=== PATIENT | female | born 1955 | race Two or more races ===

== ENCOUNTER 2018-03-29 01:25 | Inpatient (IN) | payer OTHER ==
[~2018-03-29] VITALS: Ht 157.5 cm; Wt 51.3 kg
--- NOTE | 2018-03-29 01:25 | NUR ---
FOUND WANDERING ON [address], CONFUSED, A/OX1 BUT PLEASANT. VSS NO ACUTE DISTRESS AT THIS TIME. SKIN WARM AND INTACT BUT PATIENT IS UNKEPT. [place] SPEAKING ONLY. WILL CONTINUE TO MONITOR FOR ANY CHNAGES DURING THE SHIFT.
--- NOTE | 2018-03-29 01:49 | NUR ---
EKG AT BEDSIDE
[2018-03-29 02:22] LABS: BASOPHILS % (AUTO) 0.5 % (0.0-2.0); EOSINOPHILS % (AUTO) 0.2 % (0.0-6.0); HEMATOCRIT 47 % (33-45); HEMOGLOBIN 14.8 g/dL (11.5-14.8); LYMPHOCYTES # (AUTO) 1.8 /CMM (0.8-4.8); MEAN CORPUSCULAR HEMOGLOBIN 30 PG (26.0-33.0); MEAN CORPUSCULAR HGB CONC 32 g/dl (31.0-36.0); MEAN CORPUSCULAR VOLUME 93 fL (82-100); MONOCYTES # (AUTO) 0.4 /CMM (0.1-1.30); MONOCYTES % (AUTO) 5.9 % (2.0-12.0); NEUTROPHILS # (AUTO) 4.8 /CMM (1.8-8.9); NEUTROPHILS % (AUTO) 67.4 % (43.0-81.0); PLATELET COUNT (AUTO) 322 /CMM (150-450); RDW COEFFICIENT OF VARIATION 13.5 (11.5-15.0); RED BLOOD CELL COUNT(AUTO) 4.98 MIL/uL (4.0-5.2); WHITE BLOOD COUNT (AUTO) 7.1 K/uL (4.3-11.0)
--- NOTE | 2018-03-29 02:22 | NUR ---
BLOOD/URINE SENT TO LAB WITH LASER BEAM TRIM OPERATOR
[2018-03-29 02:26] LABS: APPEARANCE,URINE SL CLOUDY (CLEAR); BILIRUBIN,URINE NEGATIVE (NEGATIVE); BLOOD, URINE NEGATIVE Ery/uL (NEGATIVE); COLOR,URINE YELLOW (YELLOW); KETONES,URINE TRACE (NEGATIVE); LEUKOCYTE ESTERASE ,URINE NEGATIVE (NEGATIVE); NITRITE, URINE NEGATIVE (NEGATIVE); PROTEIN,URINE TRACE mg/dl (NEGATIVE); UGLUCOSE NEGATIVE (NEGATIVE); UROBILINOGEN,URINE 0.2 EU/dL (0.2)
[2018-03-29 02:36] LABS: BACTERIA,URINE Many /HPF (None Seen); RBC,URINE 0-2 /HPF (0-2)
[2018-03-29 02:36] LABS: CALCIUM, SERUM 9.5 mg/dL (8.5-10.1); CARBON DIOXIDE 28 mmol/L (21-32); CHLORIDE 109 mmol/L (98-107); CREATININE 0.7 mg/dL (0.6-1.3); GLUCOSE 157 mg/dL (74-106); INR 0.96 (0.87-1.13); POTASSIUM 4.3 mmol/L (3.5-5.1); SERUM AMMONIA 3 umol/L (11-32); SODIUM SERUM 146 mmol/L (136-145); UREA NITROGEN, BLOOD 17 mg/dL (7-18)
[2018-03-29 02:37] LABS: SQUAMOUS EPITHELIAL CELL,UR Few /HPF (None Seen)
--- NOTE | 2018-03-29 02:40 | NUR ---
PT OFF TO CT
[2018-03-29 02:42] LABS: ALANINE AMINOTRANSFERASE 19 U/L (12-78); ALBUMIN 4.3 g/dL (3.4-5.0); ALCOHOL, BLOOD < 3 mg/dL (0-0); ALKALINE PHOSPHATASE 81 U/L (46-116); ASPARTATE AMINOTRANSFERASE 15 U/L (15-37); BILIRUBIN,DIRECT 0.2 mg/dL (0.0-0.2); BILIRUBIN,TOTAL 0.9 mg/dL (0.2-1.0); TROPONIN I < 0.017 ng/mL (0.00-0.056)
[2018-03-29 02:43] LABS: ACETAMINOPHEN < 0 ug/ml (10-30); SALICYLATE < 0.2 mg/dL (2.8-20.0)
--- NOTE | 2018-03-29 02:50 | NUR ---
PT BACK FROM CT
--- NOTE | 2018-03-29 04:47 | NUR ---
REPORT GIVEN TO SILVANA PATEL FOR ADMISSION, FOR PRIMARY RN SHARA
[2018-03-29 05:00] VITALS: BP 151/73
[2018-03-29] MEDS ORDERED: Potassium Chloride 20 MEQ in IV D5/ 0.9% NACL 1,000 ML IV PRN (05:30)
[2018-03-29] MEDS ORDERED: ACETAMINOPHEN 325 MG TABLET PO PRN (05:30)
[2018-03-29 06:57] LABS: BASOPHILS % (AUTO) 0.4 % (0.0-2.0); EOSINOPHILS % (AUTO) 0.3 % (0.0-6.0); HEMATOCRIT 41 % (33-45); HEMOGLOBIN 13.6 g/dL (11.5-14.8); LYMPHOCYTES # (AUTO) 1.6 /CMM (0.8-4.8); LYMPHOCYTES % (AUTO) 29.2 % (20.0-44.0); MEAN CORPUSCULAR HEMOGLOBIN 31 PG (26.0-33.0); MEAN CORPUSCULAR HGB CONC 33 g/dl (31.0-36.0); MEAN CORPUSCULAR VOLUME 93 fL (82-100); MONOCYTES # (AUTO) 0.4 /CMM (0.1-1.30); MONOCYTES % (AUTO) 7.4 % (2.0-12.0); NEUTROPHILS # (AUTO) 3.4 /CMM (1.8-8.9); NEUTROPHILS % (AUTO) 62.7 % (43.0-81.0); PLATELET COUNT (AUTO) 261 /CMM (150-450); RDW COEFFICIENT OF VARIATION 13.3 (11.5-15.0); RED BLOOD CELL COUNT(AUTO) 4.36 MIL/uL (4.0-5.2); WHITE BLOOD COUNT (AUTO) 5.5 K/uL (4.3-11.0)
[2018-03-29 07:17] LABS: THYROID STIMULATING HORMONE 0.955 uIU/mL (0.358-3.74)
[2018-03-29 07:23] LABS: CALCIUM, SERUM 8.8 mg/dL (8.5-10.1); CREATININE 0.6 mg/dL (0.6-1.3); POTASSIUM 3.5 mmol/L (3.5-5.1)
[2018-03-29 08:00] VITALS: BP_SYST 152; BP_SYST 157; BP_DIAS 68; BP_DIAS 88
--- NOTE | 2018-03-29 08:00 | NUR ---
MED/ SURG NURSE NOTES RECEIVED PATIENT SITTING IN BED SIDE CHAIR. NO INDICATION OF SHORTNESS OF BREATH NOTED, NO INDICATION OF PAIN. BREATHING EVEN AND UNLABORED.PATIENT ABLE TO MAKE NEEDS KNOWN BUT SPEAKS [facility] ONLY. SKIN IS WARM. IV LINE ON THE L WRIST INTACT AND PATENT ON FLUSHING. NO IV FLUID RUNNING AT THIS TIME DUE TO ELECTROLYTES ON NORMAL LIMITS. ENDORSED TO BE FOLLOWED UP WITH PHARMACIST ONCE LAB RESULT AVAILABLE. REITERATE PATIENT TO CALL FOR ASSISTANCE. CALL LIGHT WITHIN REACH, BED LOW AND LOCKED. WILL CLOSELY MONITOR PATIENT.
--- NOTE | 2018-03-29 08:51 | NUR ---
MED SURG NURSE NOTES SEEN AND EXAMINED BY DR. DEJESUS. PER MD PATIENT IS SEVERELY DEMENTED. OK FOR DISCHARGE ONCE IDENTITY AND LIVING ARRANGEMENT IS OBTAINED.
--- NOTE | 2018-03-29 09:45 | NUR ---
MED/SURG NURSE NOTE PATIENT DISCHARGE ACCOMPANIED BY RADHA FROM [facility]. EXIT CARE DONE. ALL QUESTIONS ADDRESSED APPROPRIATELY, DISCHARGED INSTRUCTIONS GIVEN TO RADHA THE SOFTWARE DEVELOPER MID LEVEL. PHOTOS TAKEN. PATIENT ASSISTED BY ASHVIN QUEVEDO PATIENT EXITS THE BUILDING.
== END 2018-03-29 10:00 | disposition home or self-care (01) | DRG 757 ==
LOC: ER 01:27 → TELE1 04:33 → MEDSG1 05:19
PROVIDERS: ADMIT Internal Medicine; ATTEND Internal Medicine
DX: F03.90 Unspecified dementia, unspecified severity, without behavioral disturbance, psychotic disturbance, mood disturbance, and anxiety (principal); E11.9 Type 2 diabetes mellitus without complications; I10 Essential (primary) hypertension
CPT/HCPCS: 36415; 70450-TC; 71045-TC; 80048-TC; 80076-TC; 80305; 81000-TC; 82140-TC; 82962-TC; 83605-TC; 84443-TC; 84484-TC; 85025-TC; 85730-TC; 87040-TC; 87086-TC; 87186-TC; A4606; G0480; J3480; J7042; Z7610

== ENCOUNTER 2019-02-16 15:07 | Emergency (ER) | payer OTHER ==
[~2019-02-16] VITALS: Ht 157.5 cm; Wt 61.2 kg
--- NOTE | 2019-02-16 15:15 | NUR ---
PT BIB [facility] C/O HIGH BLOOD SUGAR 230MG/DL, PT IS AAOX1, NOT IN RESPIRATORY DISTRESS, V/S STABLE, KEPT RESTED AND COMFORTABLE, WILL CONTINUE TO MONITOR.
--- NOTE | 2019-02-16 15:27 | NUR ---
SEEN AND EXAMINED BY DR. ANDERSON.
--- NOTE | 2019-02-16 15:40 | NUR ---
BLOOD DRAWNED AND SENT TO LAB.
[2019-02-16 15:43] LABS: BASOPHILS % (AUTO) 0.6 % (0.0-2.0); EOSINOPHILS % (AUTO) 0.5 % (0.0-6.0); HEMATOCRIT 38 % (33-45); HEMOGLOBIN 12.8 g/dL (11.5-14.8); LYMPHOCYTES # (AUTO) 1.3 /CMM (0.8-4.8); LYMPHOCYTES % (AUTO) 17.8 % (20.0-44.0); MEAN CORPUSCULAR HGB CONC 34 g/dl (31.0-36.0); MEAN CORPUSCULAR VOLUME 91 fL (82-100); MONOCYTES # (AUTO) 0.6 /CMM (0.1-1.30); MONOCYTES % (AUTO) 8.5 % (2.0-12.0); NEUTROPHILS # (AUTO) 5.5 /CMM (1.8-8.9); NEUTROPHILS % (AUTO) 72.6 % (43.0-81.0); PLATELET COUNT (AUTO) 242 /CMM (150-450); RED BLOOD CELL COUNT(AUTO) 4.12 MIL/uL (4.0-5.2); WHITE BLOOD COUNT (AUTO) 7.6 K/uL (4.3-11.0)
--- NOTE | 2019-02-16 15:48 | NUR ---
MARKETING ACCOUNT EXECUTIVE AT BEDSIDE FOR XRAY.
--- NOTE | 2019-02-16 15:48 | NUR ---
URINE SPECIMEN COLLECTED AND SENT TO LAB.
[2019-02-16 15:50] LABS: CALCIUM, SERUM 9.1 mg/dL (8.5-10.1); CARBON DIOXIDE 29 mmol/L (21-32); CHLORIDE 102 mmol/L (98-107); CREATININE 0.8 mg/dL (0.6-1.3); GLUCOSE 213 mg/dL (74-106); POTASSIUM 3.7 mmol/L (3.5-5.1); SODIUM SERUM 139 mmol/L (136-145); UREA NITROGEN, BLOOD 13 mg/dL (7-18)
[2019-02-16 15:52] LABS: APPEARANCE,URINE Cloudy (CLEAR); BILIRUBIN,URINE Negative (NEGATIVE); BLOOD, URINE Trace-lysed Ery/uL (NEGATIVE); COLOR,URINE Yellow (YELLOW); KETONES,URINE Negative (NEGATIVE); LEUKOCYTE ESTERASE ,URINE Large (NEGATIVE); NITRITE, URINE Positive (NEGATIVE); PROTEIN,URINE Negative (NEGATIVE); UGLUCOSE Negative (NEGATIVE); UROBILINOGEN,URINE 0.2 EU/dL (0.2)
[2019-02-16 16:08] LABS: BACTERIA,URINE Few /HPF (None Seen); SQUAMOUS EPITHELIAL CELL,UR Few /HPF (None Seen); WBC,URINE 21-50 /HPF (0-3)
[2019-02-16] MEDS ORDERED: IV NS 0.9% 500 ML BAG IV ONE (16:30)
[2019-02-16] MEDS ORDERED: CEFTRIAXONE 1 G in IV D5W 50 ML IV ONE (16:30)
[2019-02-16] MEDS ORDERED: CEFTRIAXONE 1GM BAG (ER ONLY) 50 ML IV ONE (16:32)
--- NOTE | 2019-02-16 18:59 | NUR ---
CALLED [facility] FOR [facility], ETA [phone].
--- NOTE | 2019-02-16 20:25 | NUR ---
IV removed. Catheter intact and site benign. Pressure and 4x4 applied to site. No bleeding noted. transport at [facility] report given to emt.
[2019-02-16 20:27] VITALS: BP 132/69
== END 2019-02-16 20:28 | disposition home or self-care (01) ==
LOC: ER 15:07
DX: E11.65 Type 2 diabetes mellitus with hyperglycemia (principal); N30.00 Acute cystitis without hematuria; I10 Essential (primary) hypertension; F03.90 Unspecified dementia, unspecified severity, without behavioral disturbance, psychotic disturbance, mood disturbance, and anxiety; Z86.73 Personal history of transient ischemic attack (TIA), and cerebral infarction without residual deficits
CPT/HCPCS: 36415; 71045; 80048; 81001; 84484; 85025; 87077; 87086; 87186; 93005 ×2; 96365; 99284; J0696 ×2; J7040; J7060; 81000-TC

== ENCOUNTER 2019-08-04 14:36 | Emergency (ER) | payer OTHER ==
[~2019-08-04] VITALS: Ht 167.6 cm; Wt 49.9 kg
[2019-08-04] MEDS ORDERED: METF-442 PO (15:50)
[2019-08-04] MEDS ORDERED: DONE10TA44 PO (15:50)
[2019-08-04] MEDS ORDERED: LITH300T3 PO (15:50)
[2019-08-04] MEDS ORDERED: CHOL3000 PO (15:50)
[2019-08-04] MEDS ORDERED: BENZ1TAB7 PO (15:50)
[2019-08-04] MEDS ORDERED: OLAN5TAB3 PO (15:50)
[2019-08-04] MEDS ORDERED: VALP250S3 PO (15:50)
[2019-08-04 16:01] LABS: BASOPHILS # (AUTO) 0.1 /CMM (0.0-0.2); BASOPHILS % (AUTO) 0.5 % (0.0-2.0); EOSINOPHILS % (AUTO) 0.4 % (0.0-6.0); HEMATOCRIT 40 % (33-45); HEMOGLOBIN 13.5 g/dL (11.5-14.8); LYMPHOCYTES # (AUTO) 1.7 /CMM (0.8-4.8); LYMPHOCYTES % (AUTO) 17.1 % (20.0-44.0); MEAN CORPUSCULAR HGB CONC 34 g/dl (31.0-36.0); MEAN CORPUSCULAR VOLUME 94 fL (82-100); MONOCYTES # (AUTO) 0.5 /CMM (0.1-1.30); MONOCYTES % (AUTO) 4.6 % (2.0-12.0); NEUTROPHILS # (AUTO) 7.9 /CMM (1.8-8.9); NEUTROPHILS % (AUTO) 77.4 % (43.0-81.0); PLATELET COUNT (AUTO) 323 /CMM (150-450); RED BLOOD CELL COUNT(AUTO) 4.27 MIL/uL (4.0-5.2); WHITE BLOOD COUNT (AUTO) 10.2 K/uL (4.3-11.0)
[2019-08-04 16:11] LABS: CALCIUM, SERUM 10.3 mg/dL (8.5-10.1); CARBON DIOXIDE 31 mmol/L (21-32); CHLORIDE 105 mmol/L (98-107); CREATININE 0.6 mg/dL (0.6-1.3); GLUCOSE 112 mg/dL (74-106); POTASSIUM 3.8 mmol/L (3.5-5.1); SODIUM SERUM 143 mmol/L (136-145); UREA NITROGEN, BLOOD 9 mg/dL (7-18)
[2019-08-04 16:16] LABS: ALANINE AMINOTRANSFERASE 13 U/L (12-78); ALBUMIN 3.7 g/dL (3.4-5.0); ALKALINE PHOSPHATASE 75 U/L (46-116); ASPARTATE AMINOTRANSFERASE 10 U/L (15-37); BILIRUBIN,DIRECT 0.1 mg/dL (0.0-0.2); BILIRUBIN,TOTAL 0.4 mg/dL (0.2-1.0); TOTAL PROTEIN, SERUM 7.3 g/dL (6.4-8.2)
[2019-08-04] MEDS ORDERED: IV NS 0.9% 1,000 ML BAG IV ONE (16:30)
--- NOTE | 2019-08-04 16:53 | NUR ---
RADHA. CAREGIVER. IF PT IS DISCHARGED TO CALL FOR SAP BW CONSULTANT. [phone]
--- NOTE | 2019-08-04 16:54 | NUR ---
RADHA. CAREGIVER. IF PT IS DISCHARGED TO CALL FOR RISK MANAGEMENT INTER[employer]. [phone]
--- NOTE | 2019-08-04 19:21 | NUR ---
wound care done by EMT.
--- NOTE | 2019-08-04 19:24 | NUR ---
LACTIC 2.0
--- NOTE | 2019-08-04 19:25 | NUR ---
ASSUMED CARE OF PT FOR MAYCOL.
--- NOTE | 2019-08-04 19:33 | NUR ---
CALLING RADHA, PT'S CAREGIVER, FOR CASTING WHEEL OPERATOR HELPER.
--- NOTE | 2019-08-04 19:48 | NUR ---
CALLED AMBULANCE AND WAS TOLD TO CALL CALL THE CAR AT [phone] OPT 2.
--- NOTE | 2019-08-04 19:50 | NUR ---
CALLED CALL THE CAR AND THEY DID NOT RECOGNIZE THE PT'S INSURANCE AND DID NOT HAVE THE PT IN THE SYSTEM. THEY ARE NOT ABLE TO TRANSPORT THE PT.
--- NOTE | 2019-08-04 19:54 | NUR ---
CALLING AMBULANCE TO NATURAL SCIENCES PROFESSOR PT AND TRANSPORT BACK TO [facility].
--- NOTE | 2019-08-04 19:56 | NUR ---
SPOKE TO FEMI AT AMBULANCE. ETA [phone] TRIP #[id number]
--- NOTE | 2019-08-04 21:53 | NUR ---
AMBULANCE ARRIVED AND REPORT WAS GIVEN. IV removed. Catheter intact and site benign. Pressure and 4x4 applied to site. No bleeding noted. Patient discharged to home in stable condition. Written and verbal after care instructions given. EMT verbalizes understanding of instruction. CALLED [facility] AND SPOKE TO MICKI. GAVE A COPY OF THE PHONE NUMBER TO EMT SO THAT THEY COULD CALL MICKI WHEN THEY ARRIVE AND SHE WILL OPEN THE DOOR.
--- NOTE | 2019-08-04 22:11 | NUR ---
PT SOILED HER DIAPER. PT WAS CLEANED, NEW DIAPER APPLIED, AND PT REC'D A WARM BLANKET FOR TRANSPORT HOME.
[2019-08-04 22:12] VITALS: BP 128/75
== END 2019-08-04 22:12 | disposition home or self-care (01) ==
LOC: ER 14:43
DX: S91.101A Unspecified open wound of right great toe without damage to nail, initial encounter (principal); B35.3 Tinea pedis; F03.90 Unspecified dementia, unspecified severity, without behavioral disturbance, psychotic disturbance, mood disturbance, and anxiety; I10 Essential (primary) hypertension; E11.9 Type 2 diabetes mellitus without complications; Z86.73 Personal history of transient ischemic attack (TIA), and cerebral infarction without residual deficits; Z79.899 Other long term (current) drug therapy; X58.XXXA Exposure to other specified factors, initial encounter; Y93.89 Activity, other specified; Y92.89 Other specified places as the place of occurrence of the external cause; Y99.8 Other external cause status
CPT/HCPCS: 36415; 73660; 80048; 80076; 83605 ×2; 85025; 85730; 87040 ×2; 99284; J7030